=== PATIENT | female | born 1980 | race American Indian/Alaskan Native ===

== ENCOUNTER 2022-06-11 05:54 | Day surgery (SDC) | payer MEDICAID ==
[~2022-06-11 05:54] MED LIST: LACTATED RINGERS 1,000 ML ONE
[2022-06-11 06:59] LABS: Hematocrit 23.3 % (30.3-42.9); Mean Corpuscular HGB Conc 30 % (30-34); Mean Corpuscular Volume 67 fl (79-97); Platelet Count 621 K/mm3 (140-440); Red Blood Count 3.49 M/mm3 (3.65-5.03); Red Cell Distribution Width 27.6 % (13.2-15.2)
[2022-06-11] MEDS ORDERED: fentaNYL 100 MCG/2 ML INJ ONE (07:34)
[2022-06-11] MEDS ORDERED: propofoL 200 MG/20 ML VIAL IV ONE (07:34)
[2022-06-11] MEDS ORDERED: LIDOCAINE PF 100 MG/5 ML (CARDIAC SYRINGE) IV ONE (07:35)
[2022-06-11] MEDS ORDERED: dexAMETHasone 20 MG/5 ML VIAL ONE (07:35)
[2022-06-11] MEDS ORDERED: ONDANSETRON 4 MG/2 ML INJ ONE (07:35)
--- NOTE | 2022-06-11 07:43 | History and Physical Report ---
History of Present Illness Date of examination: 06/11/22 Chief complaint: ARIC II-III History of present illness: Pt is a 42 year old -[place] female who presents for surgical m anagement of ASC-H pap, and ARIC II-III on colposcopic biopsy Past History Past Medical History: no pertinent history Past Surgical History: BIN CLEANER/uterine surgery (Essure), D&C, other (L hip replacement ) BIN CLEANER History: fibroids, herpes Family/Genetic History: other (unknown ) Social history: no significant social history - Obstetrical History : 4 Para: 2 Hx # Term Pregnancies: 2 Number of Pregnancies: 0 Spontaneous Abortions: 1 Induced : 1 Number of Living Children: 2 Medications and Allergies Allergies Allergy/AdvReac Type Severity Reaction Status Date / Time No Known Allergies Allergy Verified 05/28/22 15:43 Home Medications Medication Instructions Recorded Confirmed Last Taken Type Ferrous Sulfate [Iron 325 MG] 325 mg PO DAILY 05/28/22 05/28/22 Unknown History Review of Systems All systems: negative - Vital Signs Vital signs: Vital Signs Temp Pulse Resp BP Pulse Ox 98.4 F 76 18 155/87 100 06/11/22 07:04 06/11/22 07:04 06/11/22 07:04 06/11/22 07:04 06/11/22 07:04 Temp Pulse Resp BP Pulse Ox 98.4 F 76 18 155/87 100 06/11/22 07:04 06/11/22 07:04 06/11/22 07:04 06/11/22 07:04 06/11/22 07:04 - Physical Exam Breasts: Positive: deferred Abdomen: Positive: soft (obese ) Results Result Diagrams: 06/11/22 06:39 Abnormal lab results 06/11/22 Range/Units 06:39 RBC 3.49 L (3.65-5.03) M/mm3 Hgb 7.0 L (10.1-14.3) gm/dl Hct 23.3 L (30.3-42.9) % MCV 67 L (79-97) fl MCH 20 L (28-32) pg RDW 27.6 H (13.2-15.2) % Plt Count 621 H (140-440) K/mm3 All other labs normal. Assessment and Plan A: ARIC II-III Anemia Fibroid uterus P: Proceed with Loop electrosurgical excision procedure and other indicated procedures
[2022-06-11] MEDS ORDERED: FERRIC SUBSULFATE TOPICAL SOLN 8 ML TP ONE ×2 (07:47→09:00)
[2022-06-11] MEDS ORDERED: POTASSIUM IODIDE/IODINE (LUGOLS) 30 ML TP ONE ×2 (07:47→08:37)
--- NOTE | 2022-06-11 07:50 | Anesthesia Consultation ---
Anesthesia Consult and Med Hx Date of service: 06/11/22 - Airway Anesthetic Teeth Evaluation: Good ROM Head & Neck: Adequate Mental/Hyoid Distance: Adequate Mallampati Class: Class II Intubation Access Assessment: Probably Good - Pre-Operative Health Status ASA Pre-Surgery Classification: ASA2 Proposed Anesthetic Plan: General - Pulmonary Hx Smoking: No Hx Sleep Apnea: No (NICK PRE SCREEN NEGATIVE) - Cardiovascular System Hx Hypertension: No - Central Nervous System Hx Psychiatric Problems: Yes (anxiety, no meds) - Gastrointestinal Hx Gastroesophageal Reflux Disease: Yes (not recently) - Hematic Hx Anemia: Yes (NOT RECENT) Hx Sickle Cell Disease: No - Other Systems Hx Alcohol Use: No Hx Substance Use: No Hx Cancer: No - Additional Comments Anesthesia Medical History Comments: patient states that her mother durin induction for back procedure in the pain clinic 3 years ago
--- NOTE | 2022-06-11 07:51 | Anesthesia Day of Surgery ---
Anesthesia Day of Surgery - Day of Surgery Patient Examined: Yes Patient H&P Reviewed: Yes Patient is NPO: Yes
[2022-06-11] MEDS ORDERED: LACTATED RINGERS 1,000 ML IV SCH (08:00)
[2022-06-11] MEDS ORDERED: FAMOTIDINE 20 MG/2 ML INJ IV NR (08:00)
[2022-06-11] MEDS ORDERED: SCOPOLAMINE TRANSDERMAL PATCH 72 HR TD NR (08:00)
[2022-06-11] MEDS ORDERED: ceFAZolin/STERILE WATER 2 GM/20 ML SYRINGE IV NR (08:00)
[2022-06-11] MEDS ORDERED: GABAPENTIN 300 MG CAP PO NR (08:00)
[2022-06-11] MEDS ORDERED: MIDAZOLAM 2 MG/2 ML INJ IV NR (08:00)
[2022-06-11] MEDS ORDERED: CELECOXIB 200 MG CAP PO NR (08:00)
[2022-06-11] MEDS ORDERED: VASOPRESSIN 20 UNIT/1 ML INJ ONE (08:11)
[2022-06-11] MEDS ORDERED: SODIUM CHLORIDE 0.9% 100 ML ONE (08:11)
[2022-06-11] MEDS ORDERED: VASOPRESSIN 20 UNIT/1 ML INJ IM ONE (08:35)
[2022-06-11] MEDS ORDERED: SODIUM CHLORIDE 0.9% 100 ML IVPB IV ONE (08:38)
[2022-06-11] MEDS ORDERED: SILVER NITRATE APPLICATOR 1 EA TP ONE (09:04)
--- NOTE | 2022-06-11 09:17 | Operative Report ---
Operative Report Operative Report: Date of procedure: June 11, 2022 Preoperative diagnosis: 1) ARIC II-II 2) Obesity Postoperative diagnosis: Same 3) Cervical Mass Procedure: Loop Electrosurgical Excision Procedure (LEEP) Surgeon: Mercedes Carter MD Anesthesia: General with LMA Findings: 1) ~3 cm mass occupying the area from 9 to 12 o clock of the cervix EBL: 50 mL Specimens: right cervical mass, anterior ectocervix, posterior ectocervix to pathology Drains: None Complications: None. Counts correct x 2 Disposition: stable to PACU Indication for procedure: Pt is a 42 year old presents for surgical management of ARIC II-III. Operation in detail: After the risks, benefits, alternatives, and complications were explained to the patient, she gave informed consent for the procedure. She was subsequently taken to the operating room with her IV noted to be running well and placed in the dorsal supine position. SCDs were noted to be in place and functioning. General anesthesia was induced without difficulty. The patient was then placed in the dorsal lithotomy position and prepped and draped in a normal sterile fashion. A timeout was performed. The bladder was drained of urine prior to the start of the procedure. A coated speculum was then placed in the vagina for visualization of the cervix. A coated tenaculum was placed on the anterior lip of the cervix for traction. A 3 cm mass is noted to occupy the area from 9 oclock to 12 oclock of the cervix. The cervix was injected with 8 mL of a dilute Vasopressin solution at 12, 3 , 6, and 9 o'clock. Minimal stating of cervix with Lugol's solution. A large loop was used to excise the cervical mass, and anterior and posterior portions of the ectocervix tagged at 12 o'clock with suture and then sent to pathology. Rollerball cautery was used to obtain hemostasis of the cervical bed. Monsel's solution was placed over the cervical bed. Gel foam was placed in the cervical defect. Hemostasis was noted. The tenaculum was removed atraumatically. Hemostasis of the tenaculum puncture sites was achieved using silver nitrate. All instruments were removed from the vagina atraumatically and the procedure was then ended. The patient was then replaced into the dorsal supine position and extubated without difficulty. She was then taken to the PACU in stable condition. All counts were correct x 2.
[2022-06-11 09:22] LABS: Color,Urine Yellow (Yellow)
--- NOTE | 2022-06-11 09:23 | Short Stay Summary ---
Short Stay Documentation Date of service: 06/11/22 - History Social history: no significant social history - Allergies and Medications Current Medications: Allergies No Known Allergies Allergy (Verified 05/28/22 15:43) Home Medications Medication Instructions Recorded Confirmed Last Taken Type Ferrous Sulfate [Iron 325 MG] 325 mg PO DAILY 05/28/22 05/28/22 Unknown History Active Medications Cefazolin Sodium (Cefazolin/Sterile Water 2 Gm/20 Ml Syringe) 2 gm IV PREOP NR Stop: 06/11/22 18:00 Celecoxib (Celecoxib 200 Mg Cap) 200 mg PO PREOP NR Stop: 06/11/22 18:00 Famotidine (Famotidine 20 Mg/2 Ml Inj) 20 mg IV PREOP NR Stop: 06/11/22 18:00 Gabapentin (Gabapentin 300 Mg Cap) 300 mg PO PREOP NR Stop: 06/11/22 18:00 Lactated Ringer's (Lactated Ringers) 1,000 mls @ 100 mls/hr IV DIRECT GLORIA Midazolam HCl (Midazolam 2 Mg/2 Ml Inj) 2 mg IV PREOP NR Stop: 06/11/22 23:59 Scopolamine (Scopolamine Transdermal Patch 72 Hr) 1 each TD PREOP NR Stop: 06/11/22 23:59 - Physical exam Breasts: deferred - Brief post op/procedure progress note Date of procedure: 06/11/22 Pre-op diagnosis: ARIC II-III, Obesity Post-op diagnosis: other (Same, Cervical mass) Procedure: Loop electrosurgical excision procedure Anesthesia: GETA (With LMA) Findings: 1) ~3 cm mass occupying the area from 9 to 12 o clock of the cervix Surgeon: SAVANNAH CARTER Estimated blood loss: 50-100ml (50 mL) Pathology: list (cervical mass, anterior ectocervix, posterior ectocervix) Specimen disposition: to lab Condition: stable - Hospital course Hospital course: Patient underwent loop electrosurgical excision procedure which she tolerated well. She was monitored in the PACU until she met discharge criteria. She will follow-up in the office in [address] Carter. 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
[2022-06-11 09:55] LABS: Bacteria,Urine 1+ /HPF (Negative); Calcium Oxalate Crystals,Urine 1+; Mucus,Urine 3+ /HPF
[2022-06-11 10:20] VITALS: BP 148/70
--- NOTE | 2022-06-11 16:19 | Post Anesthesia Evaluation ---
- Post Anesthesia Evaluation Patient Participated: Yes Airway Patent: Yes Stable Respiratory Function: Yes Nausea/Vomiting: No Temp > 96.8F: Yes Pain Manageable: Yes Adequeate Hydration: Yes Anesthesia Complications: No Block Receding Appropriately: Not Applicable Patient on Ventilator: No
== END 2022-06-11 11:15 | disposition home or self-care (01) ==
LOC: OR 05:54
PROVIDERS: ATTEND Obstetrics & Gynecology
DX: D06.0 Carcinoma in situ of endocervix (principal); E66.9 Obesity, unspecified; K21.9 Gastro-esophageal reflux disease without esophagitis; M19.90 Unspecified osteoarthritis, unspecified site; F41.9 Anxiety disorder, unspecified; D64.9 Anemia, unspecified; Z79.899 Other long term (current) drug therapy; Z68.32 Body mass index [BMI] 32.0-32.9, adult; Z96.642 Presence of left artificial hip joint; Z98.890 Other specified postprocedural states
CPT/HCPCS: 36415; 57522; 81001; 81025; 85027; 88305; 88307; J0690; J1100; J2001; J2250; J2405; J2704; J3010; J3490; J7120